=== PATIENT | male | born 1965 | race Caucasian/White ===

== ENCOUNTER 2021-03-01 01:56 | Outpatient (CLI) | payer MEDICARE, SELFPAY ==
[2021-03-01 13:02] LABS: Abs Immature Grans 0.01 10^3/uL (0.0-0.06); Absolute Basophil Count 0.04 10^3/uL (0.0-0.2); Absolute Eosinophil Count 0.16 10^3/uL (0.0-0.7); Absolute Lymphocyte Count 2.13 10^3/uL (1.2-3.4); Absolute Monocyte Count 0.66 10^3/uL (0.1-0.8); Absolute Neutrophil Count 3.57 10^3/uL (1.2-6.7); Basophils % 0.6; Eosinophils % 2.4; HCT 46.6 % (40.0-50.0); HGB 15.6 g/dL (13.5-17.5); Immature Grans % 0.2; Lymphocytes % 32.4; MCH 31.6 pg (27.0-33.0); MCHC 33.5 % (32.0-36.0); MCV 94.3 fL (80-95); MPV 11.6 fL (8.0-11.0); Neutrophils % 54.4; Nucleated RBC 0 %; Platelet Count 156 10^3/uL (130-400); RBC 4.94 10^6/uL (4.36-5.78); RDW 11.7 % (11.8-14.1); RDW-SD 40.5 fL; WBC 6.57 10^3/uL (4.4-10.8)
[2021-03-01 13:14] LABS: ALT 28 U/L (16-63); AST 13 U/L (15-37); Albumin 3.9 g/dL (3.4-5.0); Alkaline Phosphatase 65 U/L (46-116); Anion Gap 11.8 mmol/L (3-11); BUN 24 mg/dL (7-18); Bilirubin, Total 0.4 mg/dL (0.2-1.0); CO2 25.2 mmol/L (21.0-32.0); CREATININE 0.9 mg/dL (0.70-1.30); Chloride 102 mmol/L (98-107); Glucose 98 mg/dL (74-106); LDH 122 U/L (85-227); Potassium 4.2 mmol/L (3.5-5.1); Sodium 139 mmol/L (136-145); Total Protein 7.1 g/dL (6.4-8.2)
== END 2021-03-01 01:57 | disposition home or self-care (01) ==
LOC: LBO 01:56
PROVIDERS: PCP Family Medicine; Visit Provider Internal Medicine Hematology & Oncology
DX: C82.02 Follicular lymphoma grade I, intrathoracic lymph nodes (principal)
CPT/HCPCS: 36415; 80053; 83615; 85025

== ENCOUNTER 2021-05-31 02:51 | Outpatient (CLI) | payer MEDICARE, SELFPAY ==
[2021-05-31 09:04] LABS: Abs Immature Grans 0.03 10^3/uL (0.0-0.06); Absolute Basophil Count 0.06 10^3/uL (0.0-0.2); Absolute Eosinophil Count 0.17 10^3/uL (0.0-0.7); Absolute Lymphocyte Count 1.91 10^3/uL (1.2-3.4); Absolute Monocyte Count 0.61 10^3/uL (0.1-0.8); Absolute Neutrophil Count 4.42 10^3/uL (1.2-6.7); Basophils % 0.8; Eosinophils % 2.4; HCT 48.4 % (40.0-50.0); HGB 15.8 g/dL (13.5-17.5); Immature Grans % 0.4; Lymphocytes % 26.5; MCH 32.1 pg (27.0-33.0); MCHC 32.6 % (32.0-36.0); MCV 98.4 fL (80-95); MPV 11.6 fL (8.0-11.0); Monocytes % 8.5; Neutrophils % 61.4; Nucleated RBC 0 %; Platelet Count 154 10^3/uL (130-400); RBC 4.92 10^6/uL (4.36-5.78); RDW 12.5 % (11.8-14.1); RDW-SD 45.1 fL
[2021-05-31 09:19] LABS: ALT 38 U/L (16-63); AST 16 U/L (15-37); Albumin 4.2 g/dL (3.4-5.0); Alkaline Phosphatase 77 U/L (46-116); Anion Gap 9.2 mmol/L (3-11); BUN 15 mg/dL (7-18); Bilirubin, Total 0.4 mg/dL (0.2-1.0); CO2 27.8 mmol/L (21.0-32.0); Calcium 9.4 mg/dL (8.5-10.1); Chloride 103 mmol/L (98-107); Glucose 125 mg/dL (74-106); LDH 124 U/L (85-227); Sodium 140 mmol/L (136-145); Total Protein 7.4 g/dL (6.4-8.2)
== END 2021-05-31 02:52 | disposition home or self-care (01) ==
LOC: LBO 02:51
PROVIDERS: PCP Family Medicine; Visit Provider Internal Medicine Hematology & Oncology
DX: C82.02 Follicular lymphoma grade I, intrathoracic lymph nodes (principal)
CPT/HCPCS: 36415; 80053; 83615; 85025

== ENCOUNTER 2021-10-04 02:01 | Outpatient (CLI) | payer MEDICARE, SELFPAY ==
[2021-10-04 13:07] LABS: Abs Immature Grans 0.03 10^3/uL (0.0-0.06); Absolute Basophil Count 0.05 10^3/uL (0.0-0.2); Absolute Eosinophil Count 0.21 10^3/uL (0.0-0.7); Absolute Lymphocyte Count 1.96 10^3/uL (1.2-3.4); Absolute Monocyte Count 0.54 10^3/uL (0.1-0.8); Absolute Neutrophil Count 4.95 10^3/uL (1.2-6.7); Basophils % 0.6; Eosinophils % 2.7; HCT 48.8 % (40.0-50.0); HGB 16.1 g/dL (13.5-17.5); Immature Grans % 0.4; Lymphocytes % 25.3; Nucleated RBC 0 %; Platelet Count 149 10^3/uL (130-400); RBC 5.03 10^6/uL (4.36-5.78); RDW 12.2 % (11.8-14.1); RDW-SD 43.8 fL; WBC 7.74 10^3/uL (4.4-10.8)
[2021-10-04 13:21] LABS: ALT 36 U/L (16-63); AST 16 U/L (15-37); Albumin 4.2 g/dL (3.4-5.0); Alkaline Phosphatase 74 U/L (46-116); BUN 17 mg/dL (7-18); Bilirubin, Total 0.4 mg/dL (0.2-1.0); Calcium 9.2 mg/dL (8.5-10.1); Chloride 103 mmol/L (98-107); Glucose 104 mg/dL (74-106); LDH 129 U/L (85-227); Potassium 3.9 mmol/L (3.5-5.1); Sodium 137 mmol/L (136-145); Total Protein 7.5 g/dL (6.4-8.2)
== END 2021-10-04 02:02 | disposition home or self-care (01) ==
LOC: LBO 02:02
PROVIDERS: PCP Family Medicine; Visit Provider Internal Medicine Hematology & Oncology
DX: C82.02 Follicular lymphoma grade I, intrathoracic lymph nodes (principal)
CPT/HCPCS: 36415; 80053; 83615; 85025

== ENCOUNTER 2022-06-06 03:53 | Outpatient (CLI) | payer MEDICARE, SELFPAY ==
[2022-06-06 10:21] LABS: Abs Immature Grans 0.03 10^3/uL (0.0-0.06); Absolute Basophil Count 0.04 10^3/uL (0.0-0.2); Absolute Eosinophil Count 0.16 10^3/uL (0.0-0.7); Absolute Lymphocyte Count 1.76 10^3/uL (1.2-3.4); Absolute Monocyte Count 0.66 10^3/uL (0.1-0.8); Absolute Neutrophil Count 4.63 10^3/uL (1.2-6.7); Basophils % 0.5; Eosinophils % 2.2; HCT 47.6 % (40.0-50.0); HGB 16.5 g/dL (13.5-17.5); Immature Grans % 0.4; Lymphocytes % 24.2; MCH 32.2 pg (27.0-33.0); MCHC 34.7 % (32.0-36.0); MCV 93 fL (80-95); MPV 11.6 fL (8.0-11.0); Monocytes % 9.1; Neutrophils % 63.6; Platelet Count 147 10^3/uL (130-400); RBC 5.12 10^6/uL (4.36-5.78); RDW 12.1 % (11.8-14.1); WBC 7.28 10^3/uL (4.4-10.8)
[2022-06-06 10:40] LABS: ALT 40 U/L (16-63); AST 19 U/L (15-37); Albumin 4.1 g/dL (3.4-5.0); Alkaline Phosphatase 83 U/L (46-116); Anion Gap 10.7 mmol/L (3-11); BUN 17 mg/dL (7-18); Bilirubin, Total 0.4 mg/dL (0.2-1.0); CO2 24.3 mmol/L (21.0-32.0); Calcium 9.2 mg/dL (8.5-10.1); Chloride 102 mmol/L (98-107); Estimated GFR 88.88 (mL/min/1.73m2); Glucose 99 mg/dL (74-106); LDH 122 U/L (85-227); Potassium 4.2 mmol/L (3.5-5.1); Sodium 137 mmol/L (136-145); Total Protein 7.5 g/dL (6.4-8.2)
== END 2022-06-06 03:54 | disposition home or self-care (01) ==
LOC: LBO 03:53
PROVIDERS: PCP Family Medicine; Visit Provider Internal Medicine Hematology & Oncology
DX: C82.02 Follicular lymphoma grade I, intrathoracic lymph nodes (principal)
CPT/HCPCS: 36415; 80053; 83615; 85025

== ENCOUNTER 2022-09-19 15:12 | Outpatient (CLI) | payer MEDICARE, SELFPAY ==
[2022-09-19 12:40] LABS: Abs Immature Grans 0.03 10^3/uL (0.0-0.06); Absolute Basophil Count 0.05 10^3/uL (0.0-0.2); Absolute Eosinophil Count 0.14 10^3/uL (0.0-0.7); Absolute Lymphocyte Count 2.08 10^3/uL (1.2-3.4); Absolute Monocyte Count 0.75 10^3/uL (0.1-0.8); Absolute Neutrophil Count 5.36 10^3/uL (1.2-6.7); Basophils % 0.6; Eosinophils % 1.7; HCT 48.3 % (40.0-50.0); HGB 16.1 g/dL (13.5-17.5); Immature Grans % 0.4; Lymphocytes % 24.7; MCH 31.5 pg (27.0-33.0); MCHC 33.3 % (32.0-36.0); MCV 95 fL (80-95); Monocytes % 8.9; Neutrophils % 63.7; Platelet Count 144 10^3/uL (130-400); RBC 5.11 10^6/uL (4.36-5.78); RDW 12.4 % (11.8-14.1); RDW-SD 43.4 fL; WBC 8.41 10^3/uL (4.4-10.8)
[2022-09-19 12:58] LABS: ALT 38 U/L (16-63); AST 21 U/L (15-37); Albumin 4.3 g/dL (3.4-5.0); Alkaline Phosphatase 69 U/L (46-116); Anion Gap 8.7 mmol/L (3-11); BUN 16 mg/dL (7-18); Bilirubin, Total 0.4 mg/dL (0.2-1.0); CO2 26.3 mmol/L (21.0-32.0); CREATININE 1.1 mg/dL (0.70-1.30); Calcium 9.1 mg/dL (8.5-10.1); Chloride 103 mmol/L (98-107); Estimated GFR 79.28 (mL/min/1.73m2); Glucose 99 mg/dL (74-106); LDH 139 U/L (85-227); Potassium 4.1 mmol/L (3.5-5.1); Sodium 138 mmol/L (136-145); Total Protein 7.7 g/dL (6.4-8.2)
== END 2022-09-19 15:13 | disposition home or self-care (01) ==
LOC: LBO 15:21
PROVIDERS: PCP Family Medicine; Visit Provider Internal Medicine Hematology & Oncology
DX: C82.02 Follicular lymphoma grade I, intrathoracic lymph nodes (principal)
CPT/HCPCS: 36415; 80053; 83615; 85025

== ENCOUNTER 2023-01-23 02:57 | Outpatient (CLI) | payer MEDICARE, SELFPAY ==
[2023-01-23 12:08] LABS: Abs Immature Grans 0.03 10^3/uL (0.0-0.06); Absolute Basophil Count 0.03 10^3/uL (0.0-0.2); Absolute Eosinophil Count 0.15 10^3/uL (0.0-0.7); Absolute Lymphocyte Count 1.72 10^3/uL (1.2-3.4); Absolute Neutrophil Count 3.95 10^3/uL (1.2-6.7); Basophils % 0.5; Eosinophils % 2.4; HCT 48.4 % (40.0-50.0); HGB 16.1 g/dL (13.5-17.5); Immature Grans % 0.5; MCH 31.4 pg (27.0-33.0); MCHC 33.3 % (32.0-36.0); MCV 95 fL (80-95); MPV 11.1 fL (8.0-11.0); Monocytes % 7.8; Neutrophils % 61.8; Platelet Count 141 10^3/uL (130-400); RBC 5.12 10^6/uL (4.36-5.78); RDW 12.3 % (11.8-14.1); RDW-SD 42.5 fL; WBC 6.38 10^3/uL (4.4-10.8)
[2023-01-23 12:29] LABS: ALT 41 U/L (16-63); AST 16 U/L (15-37); Alkaline Phosphatase 75 U/L (46-116); Anion Gap 8.3 mmol/L (3-11); BUN 12 mg/dL (7-18); Bilirubin, Total 0.4 mg/dL (0.2-1.0); CO2 25.7 mmol/L (21.0-32.0); Calcium 9.2 mg/dL (8.5-10.1); Chloride 104 mmol/L (98-107); Estimated GFR 88.33 (mL/min/1.73m2); Glucose 98 mg/dL (74-106); LDH 139 U/L (85-227); Potassium 3.9 mmol/L (3.5-5.1); Sodium 138 mmol/L (136-145); Total Protein 7.1 g/dL (6.4-8.2)
== END 2023-01-23 02:58 | disposition home or self-care (01) ==
LOC: LBO 02:57
PROVIDERS: PCP Family Medicine; Visit Provider Internal Medicine Hematology & Oncology
DX: C82.02 Follicular lymphoma grade I, intrathoracic lymph nodes (principal)
CPT/HCPCS: 36415; 80053; 83615; 85025

== ENCOUNTER 2024-07-15 02:37 | Outpatient (RCR) | payer MEDICARE, SELFPAY ==
[2024-07-08] MEDS: Normal Saline Flush 10 ML SYR IVP (10:42)
[2024-07-08 11:28] LABS: Abs Immature Grans 0.01 10^3/uL (0.0-0.06); Absolute Basophil Count 0.03 10^3/uL (0.0-0.2); Absolute Eosinophil Count 0.05 10^3/uL (0.0-0.7); Absolute Lymphocyte Count 0.76 10^3/uL (1.2-3.4); Absolute Monocyte Count 0.65 10^3/uL (0.1-0.8); Basophils % 1.7 %; Eosinophils % 2.9 %; HCT 41.9 % (40.0-50.0); Immature Grans % 0.6 %; Lymphocytes % 43.9 %; MCH 31.9 pg (27.0-33.0); MCHC 33.4 % (32.0-36.0); MCV 95 fL (80-95); MPV 10.4 fL (8.0-11.0); Monocytes % 37.6 %; Neutrophils % 13.3 %; Platelet Count 164 10^3/uL (130-400); RBC 4.39 10^6/uL (4.36-5.78); RDW 11.9 % (11.8-14.1); RDW-SD 41.1 fL
[2024-07-08 11:40] LABS: Diff Comment Diff Reviewed; RBC Morphology Normal
[2024-07-08 11:44] LABS: Absolute Neutrophil Count 0.23 10^3/uL (1.2-6.7); WBC 1.73 10^3/uL (4.4-10.8)
[2024-07-15] MEDS: Normal Saline Flush 10 ML SYR IVP (07:46)
[2024-07-15 08:12] LABS: Abs Immature Grans 0.43 10^3/uL (0.0-0.06); Absolute Basophil Count 0.06 10^3/uL (0.0-0.2); Absolute Eosinophil Count 0.05 10^3/uL (0.0-0.7); Absolute Lymphocyte Count 1.27 10^3/uL (1.2-3.4); Absolute Monocyte Count 1.26 10^3/uL (0.1-0.8); Absolute Neutrophil Count 6.06 10^3/uL (1.2-6.7); Basophils % 0.7 %; Eosinophils % 0.5 %; HCT 44.7 % (40.0-50.0); HGB 15.4 g/dL (13.5-17.5); Immature Grans % 4.7 %; Lymphocytes % 13.9 %; MCH 32.4 pg (27.0-33.0); MCHC 34.5 % (32.0-36.0); MCV 94 fL (80-95); Monocytes % 13.8 %; Neutrophils % 66.4 %; Platelet Count 225 10^3/uL (130-400); RBC 4.76 10^6/uL (4.36-5.78); RDW 12.5 % (11.8-14.1); RDW-SD 42.5 fL; WBC 9.13 10^3/uL (4.4-10.8)
[2024-07-15 08:29] LABS: ALT 33 U/L (16-63); AST 12 U/L (15-37); Albumin 3.7 g/dL (3.4-5.0); Alkaline Phosphatase 91 U/L (46-116); Anion Gap 10.8 mmol/L (3-11); BUN 19 mg/dL (7-18); Bilirubin, Total 0.26 mg/dL (0.2-1.0); CO2 25.2 mmol/L (21.0-32.0); Calcium 9.6 mg/dL (8.5-10.1); Chloride 105 mmol/L (98-107); Estimated GFR 87.78 (mL/min/1.73m2); Glucose 110 mg/dL (74-106); LDH 160 U/L (85-227); Potassium 4.4 mmol/L (3.5-5.1); Sodium 141 mmol/L (136-145); Total Protein 7.3 g/dL (6.4-8.2)
== END 2024-07-15 23:59 | disposition home or self-care (01) ==
LOC: INF 02:37
PROVIDERS: Nurse Practitioner Family; PCP Family Medicine; Visit Provider Internal Medicine Hematology & Oncology
DX: C82.90 Follicular lymphoma, unspecified, unspecified site; C85.80 Other specified types of non-Hodgkin lymphoma, unspecified site; Z45.2 Encounter for adjustment and management of vascular access device
CPT/HCPCS: 36415; 36591; 80053; 96523; 83615; 85025

== ENCOUNTER 2024-08-04 02:11 | Outpatient (RCR) | payer MEDICARE, SELFPAY ==
[2024-08-04] MEDS: Normal Saline Flush 10 ML SYR IVP (07:35)
[2024-08-04 08:02] LABS: Abs Immature Grans 0.26 10^3/uL (0.0-0.06); Absolute Basophil Count 0.07 10^3/uL (0.0-0.2); Absolute Eosinophil Count 0.09 10^3/uL (0.0-0.7); Absolute Lymphocyte Count 1.03 10^3/uL (1.2-3.4); Absolute Neutrophil Count 3.03 10^3/uL (1.2-6.7); Basophils % 1.3 %; Eosinophils % 1.6 %; HCT 43.1 % (40.0-50.0); HGB 14.6 g/dL (13.5-17.5); Immature Grans % 4.7 %; Lymphocytes % 18.5 %; MCH 32.4 pg (27.0-33.0); MCHC 33.9 % (32.0-36.0); MCV 96 fL (80-95); MPV 10.6 fL (8.0-11.0); Monocytes % 19.7 %; Neutrophils % 54.2 %; Nucleated RBC 0.4 % (0.0-0.3); Platelet Count 197 10^3/uL (130-400); RBC 4.51 10^6/uL (4.36-5.78); RDW-SD 44.5 fL; WBC 5.58 10^3/uL (4.4-10.8)
[2024-08-04 08:23] LABS: ALT 37 U/L (16-63); AST 15 U/L (15-37); Albumin 3.6 g/dL (3.4-5.0); Alkaline Phosphatase 65 U/L (46-116); Anion Gap 6.8 mmol/L (3-11); BUN 15 mg/dL (7-18); CO2 27.2 mmol/L (21.0-32.0); CREATININE 0.9 mg/dL (0.70-1.30); Chloride 106 mmol/L (98-107); Estimated GFR 99.62 (mL/min/1.73m2); Glucose 85 mg/dL (74-106); Potassium 4.1 mmol/L (3.5-5.1); Sodium 140 mmol/L (136-145)
[2024-08-04 08:25] LABS: LDH 146 U/L (85-227)
== END 2024-08-14 23:59 | disposition home or self-care (01) ==
LOC: INF 02:11
PROVIDERS: Nurse Practitioner Family; PCP Family Medicine; Visit Provider Internal Medicine Hematology & Oncology
DX: C85.80 Other specified types of non-Hodgkin lymphoma, unspecified site (principal); Z45.2 Encounter for adjustment and management of vascular access device
CPT/HCPCS: 36591; 80053; 83615; 85025

== ENCOUNTER 2024-08-25 02:11 | Outpatient (RCR) | payer MEDICARE, SELFPAY ==
[2024-08-25] MEDS: Normal Saline Flush 10 ML SYR IVP (07:19)
[2024-08-25 07:22] LABS: Abs Immature Grans 0.33 10^3/uL (0.0-0.06); Absolute Basophil Count 0.07 10^3/uL (0.0-0.2); Absolute Eosinophil Count 0.09 10^3/uL (0.0-0.7); Absolute Lymphocyte Count 1.22 10^3/uL (1.2-3.4); Absolute Monocyte Count 1.27 10^3/uL (0.1-0.8); Basophils % 0.7 %; HCT 39.2 % (40.0-50.0); HGB 13.2 g/dL (13.5-17.5); Immature Grans % 3.5 %; MCH 32.1 pg (27.0-33.0); MCHC 33.7 % (32.0-36.0); MCV 95 fL (80-95); MPV 10.7 fL (8.0-11.0); Monocytes % 13.5 %; Neutrophils % 68.3 %; Platelet Count 201 10^3/uL (130-400); RBC 4.11 10^6/uL (4.36-5.78); RDW-SD 48.2 fL; WBC 9.38 10^3/uL (4.4-10.8)
[2024-08-25 07:37] LABS: ALT 30 U/L (16-63); AST 13 U/L (15-37); Albumin 3.5 g/dL (3.4-5.0); Alkaline Phosphatase 83 U/L (46-116); Anion Gap 10.4 mmol/L (3-11); BUN 15 mg/dL (7-18); Bilirubin, Total 0.21 mg/dL (0.2-1.0); CO2 27.6 mmol/L (21.0-32.0); CREATININE 1.2 mg/dL (0.70-1.30); Chloride 103 mmol/L (98-107); Estimated GFR 70.53 (mL/min/1.73m2); Glucose 113 mg/dL (74-106); LDH 147 U/L (85-227); Potassium 3.9 mmol/L (3.5-5.1); Sodium 141 mmol/L (136-145)
== END 2024-09-14 23:59 | disposition home or self-care (01) ==
LOC: INF 02:11
PROVIDERS: PCP Family Medicine; Visit Provider Internal Medicine Hematology & Oncology
DX: C85.80 Other specified types of non-Hodgkin lymphoma, unspecified site (principal); Z45.2 Encounter for adjustment and management of vascular access device
CPT/HCPCS: 36591; 80053; 83615; 85025

== ENCOUNTER 2024-10-06 01:38 | Outpatient (RCR) | payer MEDICARE, SELFPAY ==
[2024-09-17] MEDS: Normal Saline Flush 10 ML SYR IVP (08:12)
[2024-09-17 08:38] LABS: Abs Immature Grans 0.33 10^3/uL (0.0-0.06); Absolute Basophil Count 0.09 10^3/uL (0.0-0.2); Absolute Eosinophil Count 0.14 10^3/uL (0.0-0.7); Absolute Lymphocyte Count 1.11 10^3/uL (1.2-3.4); Absolute Monocyte Count 1.24 10^3/uL (0.1-0.8); Absolute Neutrophil Count 6.46 10^3/uL (1.2-6.7); Eosinophils % 1.5 %; HCT 39.7 % (40.0-50.0); HGB 13.2 g/dL (13.5-17.5); Immature Grans % 3.5 %; Lymphocytes % 11.8 %; MCH 32.3 pg (27.0-33.0); MCHC 33.2 % (32.0-36.0); MCV 97 fL (80-95); Monocytes % 13.2 %; Nucleated RBC 0.5 % (0.0-0.3); Platelet Count 220 10^3/uL (130-400); RBC 4.09 10^6/uL (4.36-5.78); RDW 14.4 % (11.8-14.1); RDW-SD 50.4 fL; WBC 9.37 10^3/uL (4.4-10.8)
[2024-09-17 08:55] LABS: ALT 38 U/L (16-63); AST 16 U/L (15-37); Albumin 3.5 g/dL (3.4-5.0); Alkaline Phosphatase 73 U/L (46-116); Anion Gap 7.8 mmol/L (3-11); BUN 11 mg/dL (7-18); Bilirubin, Total 0.22 mg/dL (0.2-1.0); CO2 29.2 mmol/L (21.0-32.0); Calcium 9.2 mg/dL (8.5-10.1); Chloride 104 mmol/L (98-107); Estimated GFR 87.78 (mL/min/1.73m2); Glucose 93 mg/dL (74-106); LDH 149 U/L (85-227); Potassium 4.3 mmol/L (3.5-5.1); Sodium 141 mmol/L (136-145)
[2024-10-06] MEDS: Normal Saline Flush 10 ML SYR IVP (07:47)
[2024-10-06 07:52] LABS: Abs Immature Grans 0.18 10^3/uL (0.0-0.06); Absolute Basophil Count 0.06 10^3/uL (0.0-0.2); Absolute Eosinophil Count 0.07 10^3/uL (0.0-0.7); Absolute Lymphocyte Count 0.94 10^3/uL (1.2-3.4); Absolute Monocyte Count 1.22 10^3/uL (0.1-0.8); Absolute Neutrophil Count 2.61 10^3/uL (1.2-6.7); Basophils % 1.2 %; Eosinophils % 1.4 %; HGB 12.9 g/dL (13.5-17.5); Immature Grans % 3.5 %; Lymphocytes % 18.5 %; MCH 32.5 pg (27.0-33.0); MCHC 33.1 % (32.0-36.0); MCV 98 fL (80-95); Neutrophils % 51.4 %; Nucleated RBC 0.4 % (0.0-0.3); RBC 3.97 10^6/uL (4.36-5.78); RDW 14.6 % (11.8-14.1); RDW-SD 52.7 fL; WBC 5.08 10^3/uL (4.4-10.8)
[2024-10-06 08:05] LABS: ALT 48 U/L (16-63); AST 21 U/L (15-37); Albumin 3.4 g/dL (3.4-5.0); Alkaline Phosphatase 81 U/L (46-116); Anion Gap 6.2 mmol/L (3-11); BUN 13 mg/dL (7-18); Bilirubin, Total 0.34 mg/dL (0.2-1.0); CO2 29.8 mmol/L (21.0-32.0); CREATININE 1.1 mg/dL (0.70-1.30); Calcium 9.4 mg/dL (8.5-10.1); Chloride 104 mmol/L (98-107); Glucose 99 mg/dL (74-106); LDH 151 U/L (85-227); Potassium 4.1 mmol/L (3.5-5.1); Sodium 140 mmol/L (136-145); Total Protein 6.9 g/dL (6.4-8.2)
[2024-10-06 08:15] LABS: Diff Comment Diff Reviewed; Polychromasia Present
== END 2024-10-15 23:59 | disposition home or self-care (01) ==
LOC: INF 01:38
PROVIDERS: PCP Family Medicine; Visit Provider Internal Medicine Hematology & Oncology
DX: C85.80 Other specified types of non-Hodgkin lymphoma, unspecified site (principal)
CPT/HCPCS: 36591; 80053; 83615; 85025

== ENCOUNTER 2024-11-03 02:12 | Outpatient (RCR) | payer MEDICARE, SELFPAY ==
[2024-11-03] MEDS: Normal Saline Flush 10 ML SYR IVP (13:52)
[2024-11-03 14:32] LABS: ALT 41 U/L (16-63); AST 21 U/L (15-37); Albumin 3.7 g/dL (3.4-5.0); Alkaline Phosphatase 76 U/L (46-116); Anion Gap 9.3 mmol/L (3-11); BUN 13 mg/dL (7-18); Bilirubin, Total 0.22 mg/dL (0.2-1.0); CO2 25.7 mmol/L (21.0-32.0); Calcium 8.9 mg/dL (8.5-10.1); Chloride 104 mmol/L (98-107); Estimated GFR 87.78 (mL/min/1.73m2); Glucose 90 mg/dL (74-106); Potassium 4.1 mmol/L (3.5-5.1); Sodium 139 mmol/L (136-145); Total Protein 7.1 g/dL (6.4-8.2)
[2024-11-03 18:16] LABS: LDH 209 U/L (85-227)
== END 2024-11-12 23:59 | disposition home or self-care (01) ==
LOC: INF 02:12
PROVIDERS: PCP Family Medicine; Visit Provider Internal Medicine Hematology & Oncology
DX: C85.80 Other specified types of non-Hodgkin lymphoma, unspecified site (principal)
CPT/HCPCS: 36591; 80053; 83615; 85025